=== PATIENT | male | born 1945 | race Caucasian/White ===

== ENCOUNTER 2018-05-08 08:55 | Inpatient (IN) | payer OTHER ==
[~2018-05-08] VITALS: Ht 170.2 cm; Wt 71.8 kg
[2018-05-08 08:55] VITALS: Ht 170.2 cm; Wt 71.8 kg
[2018-05-08 09:41] LABS: ALKALINE PHOSPHATASE 166 U/L (46-116); ALT/SGPT 31 U/L (16-63); AST/SGOT 31 U/L (15-37); BILIRUBIN TOTAL 0.6 mg/dL (0.20-1.00); CALCIUM 8.2 mg/dL (8.5-10.1); CARBON DIOXIDE 26.2 mmol/L (21-32); CHLORIDE SERUM 100 mmol/L (98-107); CREATININE SERUM 2.2 mg/dL (0.7-1.3); GLUCOSE SERUM 151 mg/dL (74-106); SODIUM SERUM 132 mmol/L (136-145); TOTAL PROTEIN, SERUM 7.2 g/dL (6.4-8.2)
[2018-05-08 09:45] LABS: ALBUMIN 2.7 g/dL (3.4-5.0)
[2018-05-08 09:48] LABS: POTASSIUM SERUM 6.3 mmol/L (3.5-5.1)
[2018-05-08 10:13] LABS: PLATELET COUNT 229 x10^3mcL (130-400); RED CELL DISTRIBUTION WIDTH 13.2 % (11.5-14.5)
[2018-05-08 10:14] LABS: ATYPICAL LYMPH 0 %; BAND NEUTROPHIL 17 % (0-10); BASOPHIL 0 % (0-2); MONOCYTE 2 % (0-7); SEGMENTED NEUTROPHILS 78 % (37-75); rbc morphology (normal/abnorm) ABNORMAL (NORMAL)
[2018-05-08 10:15] LABS: PLATELET MORPHOLOGY PLATELETS DECREASED
[2018-05-08] MEDS ORDERED: ASPIR 8181 MG PO (12:10)
[2018-05-08] MEDS ORDERED: ATORVASTATIN CA40 M1 PO (12:11)
[2018-05-08] MEDS ORDERED: ALPHAGAN P5 M1 OU (12:11)
[2018-05-08] MEDS ORDERED: FIBER LAX625 MG PO (12:12)
[2018-05-08] MEDS ORDERED: DULERA1 AR3 IH (12:12)
[2018-05-08] MEDS ORDERED: NEURONTIN600 MG PO (12:13)
[2018-05-08] MEDS ORDERED: LANTUS SOLOS100 U/M1 SQ (12:14)
[2018-05-08] MEDS ORDERED: HUMULIN N100 U/1 ML SC (12:14)
[2018-05-08] MEDS ORDERED: LACTULOSE10 GM/152 PO (12:14)
[2018-05-08] MEDS ORDERED: NASACORT A55 MCG/Ac1 NS (12:15)
[2018-05-08] MEDS ORDERED: LIQUITEARS15 ML OP (12:15)
[2018-05-08] MEDS ORDERED: PANTOPRAZOLE SO40 M1 PO (12:16)
[2018-05-08 13:34] VITALS: BP 109/67
[2018-05-08 15:52] VITALS: BP 127/67
[2018-05-08 19:11] VITALS: BP 121/53
[2018-05-08 21:36] VITALS: BP 125/68
[2018-05-09 05:29] VITALS: BP 135/77
[2018-05-09 07:50] LABS: ALKALINE PHOSPHATASE 148 U/L (46-116); ALT/SGPT 82 U/L (16-63); AST/SGOT 80 U/L (15-37); BILIRUBIN TOTAL 0.36 mg/dL (0.20-1.00); CALCIUM 8.7 mg/dL (8.5-10.1); CARBON DIOXIDE 25.2 mmol/L (21-32); CHLORIDE SERUM 105 mmol/L (98-107); CREATININE SERUM 1.8 mg/dL (0.7-1.3); GLUCOSE SERUM 373 mg/dL (74-106); MAGNESIUM 2.1 mg/dL (1.8-2.4); PHOSPHOROUS 2.6 mg/dL (2.5-4.9); POTASSIUM SERUM 4.2 mmol/L (3.5-5.1); SODIUM SERUM 140 mmol/L (136-145); TOTAL PROTEIN, SERUM 7.2 g/dL (6.4-8.2)
[2018-05-09 07:55] LABS: ALBUMIN 2.2 g/dL (3.4-5.0)
[2018-05-09 08:41] VITALS: BP 126/68
[2018-05-09 10:41] LABS: PLATELET COUNT 211 x10^3mcL (130-400)
[2018-05-09 11:51] VITALS: BP 128/64
[2018-05-09 13:10] LABS: BAND NEUTROPHIL 20 % (0-10); BASOPHIL 0 % (0-2); MONOCYTE 5 % (0-7); PLATELET MORPHOLOGY PLATELETS NORMAL; SEGMENTED NEUTROPHILS 72 % (37-75); rbc morphology (normal/abnorm) NORMAL (NORMAL)
[2018-05-09 21:52] VITALS: BP 136/72
[2018-05-10 05:45] VITALS: BP 144/75
[2018-05-10 09:00] LABS: PLATELET COUNT 215 x10^3mcL (130-400); RED CELL DISTRIBUTION WIDTH 13.2 % (11.5-14.5)
[2018-05-10 09:01] LABS: CALCIUM 8.2 mg/dL (8.5-10.1); CARBON DIOXIDE 23.4 mmol/L (21-32); CHLORIDE SERUM 108 mmol/L (98-107); CREATININE SERUM 1.5 mg/dL (0.7-1.3); GLUCOSE SERUM 226 mg/dL (74-106); POTASSIUM SERUM 3.6 mmol/L (3.5-5.1); SODIUM SERUM 142 mmol/L (136-145)
[2018-05-10 10:44] VITALS: BP 133/68
[2018-05-10 14:08] VITALS: BP 136/62
[2018-05-10 16:21] LABS: BAND NEUTROPHIL 6 % (0-10); BASOPHIL 0 % (0-2); MONOCYTE 2 % (0-7); SEGMENTED NEUTROPHILS 91 % (37-75)
[2018-05-10 16:22] LABS: PLATELET MORPHOLOGY PLATELETS DECREASED; rbc morphology (normal/abnorm) ABNORMAL (NORMAL)
[2018-05-10 22:24] VITALS: BP 154/64
[2018-05-11 05:05] VITALS: BP 119/80
[2018-05-11 06:50] LABS: PLATELET COUNT 210 x10^3mcL (130-400); RED CELL DISTRIBUTION WIDTH 13.5 % (11.5-14.5)
[2018-05-11 07:08] LABS: ALKALINE PHOSPHATASE 108 U/L (46-116); ALT/SGPT 55 U/L (16-63); AST/SGOT 15 U/L (15-37); BILIRUBIN TOTAL 0.2 mg/dL (0.20-1.00); CHLORIDE SERUM 107 mmol/L (98-107); CREATININE SERUM 1.6 mg/dL (0.7-1.3); GLUCOSE SERUM 287 mg/dL (74-106); PHOSPHOROUS 3.1 mg/dL (2.5-4.9); POTASSIUM SERUM 4.2 mmol/L (3.5-5.1); SODIUM SERUM 140 mmol/L (136-145); TOTAL PROTEIN, SERUM 6.2 g/dL (6.4-8.2)
[2018-05-11 07:17] LABS: ALBUMIN 1.8 g/dL (3.4-5.0)
[2018-05-11 08:00] VITALS: BP 141/72
[2018-05-11 12:00] VITALS: BP 150/70
[2018-05-11 13:16] LABS: BAND NEUTROPHIL 3 % (0-10); BASOPHIL 0 % (0-2); MONOCYTE 6 % (0-7); SEGMENTED NEUTROPHILS 86 % (37-75)
[2018-05-11 13:18] LABS: PLATELET MORPHOLOGY PLATELETS DECREASED; rbc morphology (normal/abnorm) ABNORMAL (NORMAL)
[2018-05-11 16:30] VITALS: BP 157/68
[2018-05-11 21:35] VITALS: BP 158/79
[2018-05-12 05:21] VITALS: BP 152/70
[2018-05-12 07:24] LABS: PLATELET COUNT 216 x10^3mcL (130-400); RED CELL DISTRIBUTION WIDTH 13.3 % (11.5-14.5)
[2018-05-12 07:39] LABS: CALCIUM 8.3 mg/dL (8.5-10.1); CARBON DIOXIDE 25.3 mmol/L (21-32); CHLORIDE SERUM 105 mmol/L (98-107); CREATININE SERUM 1.2 mg/dL (0.7-1.3); GLUCOSE SERUM 233 mg/dL (74-106); POTASSIUM SERUM 4.8 mmol/L (3.5-5.1); SODIUM SERUM 136 mmol/L (136-145)
[2018-05-12 09:00] VITALS: BP 130/64
[2018-05-12 12:09] LABS: ATYPICAL LYMPH 1 %; BAND NEUTROPHIL 0 % (0-10); BASOPHIL 0 % (0-2); MONOCYTE 4 % (0-7); SEGMENTED NEUTROPHILS 94 % (37-75)
[2018-05-12 12:10] LABS: PLATELET MORPHOLOGY PLATELETS DECREASED; rbc morphology (normal/abnorm) ABNORMAL (NORMAL)
[2018-05-12 13:13] VITALS: BP 139/67
[2018-05-12 17:04] VITALS: BP 148/69
[2018-05-12 20:55] VITALS: BP 136/74
[2018-05-13 05:39] VITALS: BP 124/65
[2018-05-13 07:06] LABS: CALCIUM 8.3 mg/dL (8.5-10.1); CARBON DIOXIDE 25.1 mmol/L (21-32); CHLORIDE SERUM 102 mmol/L (98-107); CREATININE SERUM 1.1 mg/dL (0.7-1.3); GLUCOSE SERUM 237 mg/dL (74-106); POTASSIUM SERUM 4.7 mmol/L (3.5-5.1); SODIUM SERUM 134 mmol/L (136-145)
[2018-05-13 07:50] LABS: PLATELET COUNT 254 x10^3mcL (130-400); RED CELL DISTRIBUTION WIDTH 13.1 % (11.5-14.5)
[2018-05-13 08:40] VITALS: BP 119/62
[2018-05-13 10:11] LABS: BAND NEUTROPHIL 1 % (0-10); BASOPHIL 0 % (0-2); MONOCYTE 2 % (0-7); SEGMENTED NEUTROPHILS 85 % (37-75)
[2018-05-13 10:13] LABS: PLATELET MORPHOLOGY PLATELETS NORMAL; rbc morphology (normal/abnorm) ABNORMAL (NORMAL)
[2018-05-13 11:54] VITALS: BP 120/61
[2018-05-13 16:30] VITALS: BP 109/54
[2018-05-13 19:40] VITALS: BP 139/58
[2018-05-14 04:17] VITALS: BP 126/50
[2018-05-14 05:55] VITALS: BP 130/64
[2018-05-14 07:22] LABS: CALCIUM 8.2 mg/dL (8.5-10.1); CARBON DIOXIDE 26.2 mmol/L (21-32); CHLORIDE SERUM 102 mmol/L (98-107); GLUCOSE SERUM 248 mg/dL (74-106); SODIUM SERUM 134 mmol/L (136-145)
[2018-05-14 07:23] LABS: PLATELET COUNT 290 x10^3mcL (130-400); RED CELL DISTRIBUTION WIDTH 13.4 % (11.5-14.5)
[2018-05-14 10:27] VITALS: BP 126/62
[2018-05-14 12:17] LABS: ATYPICAL LYMPH 1 %; BAND NEUTROPHIL 0 % (0-10); BASOPHIL 0 % (0-2); MONOCYTE 10 % (0-7); SEGMENTED NEUTROPHILS 81 % (37-75)
[2018-05-14 12:19] LABS: PLATELET MORPHOLOGY PLATELETS NORMAL; rbc morphology (normal/abnorm) ABNORMAL (NORMAL)
[2018-05-14 12:58] VITALS: BP 120/55
[2018-05-14 13:44] VITALS: BP 120/55
[2018-05-14] MEDS ORDERED: CLINDAMYCIN HC300 MG PO (14:09)
[2018-05-14] MEDS ORDERED: PREDNISONE20 MG (14:09)
[2018-05-14] MEDS ORDERED: LEVOFLOXACIN500 M1 PO (14:10)
== END 2018-05-14 17:12 | disposition other institution (70) | DRG 871 ==
LOC: ED 08:55 → DU 10:06 → ED 10:36 → DU 12:20
PROVIDERS: Emergency Medicine; Internal Medicine; ADMIT Internal Medicine
PROC: 0WJB3ZZ Inspection of Left Pleural Cavity, Percutaneous Approach (ICD-10-PCS; principal; 2018-05-09)
PROC: 0WJ93ZZ Inspection of Right Pleural Cavity, Percutaneous Approach (ICD-10-PCS; 2018-05-09)
DX: A41.9 Sepsis, unspecified organism (principal); J96.01 Acute respiratory failure with hypoxia; J69.0 Pneumonitis due to inhalation of food and vomit; E43 Unspecified severe protein-calorie malnutrition; N17.9 Acute kidney failure, unspecified; J44.1 Chronic obstructive pulmonary disease with (acute) exacerbation; L03.113 Cellulitis of right upper limb; I12.9 Hypertensive chronic kidney disease with stage 1 through stage 4 chronic kidney disease, or unspecified chronic kidney disease; N18.9 Chronic kidney disease, unspecified; E87.5 Hyperkalemia; E78.5 Hyperlipidemia, unspecified; I25.10 Atherosclerotic heart disease of native coronary artery without angina pectoris; Z79.82 Long term (current) use of aspirin; Z95.1 Presence of aortocoronary bypass graft; E11.22 Type 2 diabetes mellitus with diabetic chronic kidney disease; D64.9 Anemia, unspecified; R65.20 Severe sepsis without septic shock; E11.42 Type 2 diabetes mellitus with diabetic polyneuropathy; Z68.24 Body mass index [BMI] 24.0-24.9, adult
CPT/HCPCS: 32555; 36600; 82962; 83880; J0456; J0696; J1644; J1815; J1940; J1956; J2543; J2920; J2930; J3490; J7030; J7040; J7613; J7620; J7626; J7644; Q0092